=== PATIENT | female | born 1985 | race Caucasian/White ===

== ENCOUNTER 2021-10-21 05:55 | Inpatient (IN) | payer OTHER ==
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
[2021-10-21] MEDS ORDERED: LIDOCAINE 1% (10MG/ML) FOR IV START INTRADERMA PRN (06:22)
[2021-10-21] MEDS ORDERED: CITRIC ACID-SODIUM CITRATE 15 ML CUP PO ONE (06:22)
[2021-10-21] MEDS ORDERED: LACTATED RINGERS 1,000 ML IV ONE (06:22)
[2021-10-21 06:44] LABS: Glucose,Whole Blood 94 mg/dL (70-110)
[2021-10-21 06:51] LABS: Basophils % (A) 0 %; Eosinophils # (A) 0.1 k/uL (0-0.7); Eosinophils % (A) 1 %; HCT 36.7 % (34.0-46.0); HGB 11.8 gm/dL (11.4-16.0); Lymphocytes # (A) 2.4 k/uL (1.0-4.8); Lymphocytes % (A) 28 %; MCH 30.8 pg (25.0-35.0); MCV 96.2 fL (80.0-100.0); Mean Platelet Volume 7.8; Monocytes # (A) 0.7 k/uL (0-1.0); Monocytes % (A) 9 %; Neutrophils # (A) 5.1 k/uL (1.3-7.7); Neutrophils % (A) 60 %; Platelet Count 425 k/uL (150-450); RBC 3.82 m/uL (3.80-5.40); RDW 13.2 % (11.5-15.5); WBC 8.5 k/uL (3.8-10.6)
[2021-10-21] MEDS ORDERED: OXYTOCIN 30 UNITS/500 ML NS BAG IV ONE (07:59)
[2021-10-21] MEDS ORDERED: MORPHINE SULFATE (PF) 0.3 MG/0.3 ML SYR ONE (07:59)
[2021-10-21] MEDS ORDERED: NALBUPHINE 10 MG/ML (1 ML AMP) ONE (07:59)
[2021-10-21] MEDS ORDERED: KETOROLAC 15 MG/ML 1 ML VIAL ONE (07:59)
[2021-10-21] MEDS ORDERED: ONDANSETRON 4 MG/2 ML VIAL ONE (07:59)
[2021-10-21 08:45] LABS: Amphetamine Screen,Urine Not Detected (NotDetected); Barbiturate Screen,Urine Not Detected (NotDetected); Benzodiazepines Screen,Urine Not Detected (NotDetected); Cocaine Screen,Urine Not Detected (NotDetected); Methadone Screen, Urine Not Detected (NotDetected); Opiate Screen,Urine Not Detected (NotDetected); Oxycodone Screen, Urine Not Detected (NotDetected); Phencyclidine Screen,Urine Not Detected (NotDetected); Tricyclic Antidepressant,Urine Not Detected (NotDetected); Urn Cannabinoid Scrn Not Detected (NotDetected)
[2021-10-21] MEDS: OXYTOCIN 30 UNITS/500 ML NS 30 UNIT in SALINE 1 500ML.BAG IV SCH ×2 (08:45→09:48)
--- NOTE | 2021-10-21 08:56 | P.OP ---
Date of Procedure: 10/21/21 Preoperative Diagnosis: 1. Intrauterine at 39 and one sevenths weeks. 2. History of retained placenta and hemorrhage. 3. Limited care. 4. Family-planning. Postoperative Diagnosis: Same Procedure(s) Performed: Primary low transverse section with bilateral partial salpingectomy Anesthesia: spinal (Duramorph) Surgeon: Carline Woodruff Hop Grower #1: Daren Jackson Estimated Blood Loss (ml): 600 Pathology: none sent (Placenta, portions of right and left fallopian tubes) Condition: stable Disposition: floor Indications for Procedure: This is a 36-year-old female 5 para 4 at 39 and one sevenths weeks who presents for primary section secondary to history of hemorrhage and retained placenta with her last . She also has requested tubal ligation for family planning. She has had limited care this . I have discussed the risks, benefits, and alternative therapies for the above- mentioned procedure and for both sedation/anesthesia as well as necessary blood products administration, if indicated, as they pertain to this patient. The patient has indicated her understanding and acceptance of the risks and procedures discussed. Operative Findings: A viable male infant is noted in the vertex presentation with scores of 7 at 1 minute and 8 at 5 minutes and infant weight of 6 lbs. 4 oz. Normal uterus tubes and ovaries are noted. Description of Procedure: The patient is taken to the operating room where she is placed in the dorsal supine position with leftward tilt after spinal Duramorph anesthesia is given. She is prepped and draped in the normal sterile fashion. Skin was tested and found to be adequately anesthetized. A Pfannenstiel skin incision was made with a scalpel. A second knife was used to carry the incision down to the underlying layer of fascia. The fascia was nicked in the midline with a scalpel and then extended laterally bilaterally with Holland scissors. The anterior lip of the fascia was grasped with 2 Wil clamps and then dissected off the underlying rectus muscle in the midline with Holland scissors. The inferior aspect of the fascial incision was grasped with 2 Wil clamps and dissected off the underlying rectus muscle and the midline with Holland scissors. Next the peritoneum layer was tented up with 2 hemostats and then entered sharply with the scalpel. The incision is extended superiorly and inferiorly with Metzenbaum scissors. Next a DeLee retractor is placed. The vesicouterine peritoneum is entered sharply with Metzenbaum scissors and extended laterally bilaterally with Metzenbaum scissors and then the bladder flap is pushed inferiorly. The lower uterine segment is incised in transverse fashion with the scalpel and then bluntly entered with a hemostat. Clear fluid is noted. The incision was then extended laterally bilaterally with 2 fingers. Next the 's head is delivered through the incision. Nose and mouth are bulb suctioned. The remainder of the is easily delivered and placed on mother's abdomen. Cord is clamped and cut. is taken to warmer by nursing staff. Uterine fundus is gently massaged and placenta is delivered manually. Uterus is exteriorized and cleared of all clots and debris. Uterine incision is closed with 0 Vicryl suture in a running locked fashion. A second layer of 0 Vicryl suture is used in a running fashion for hemostasis. Once adequate hemostasis as assured, the vesicouterine peritoneum is reapproximated with 2-0 Vicryl suture in a running fashion. Attention is then turned to the tubes. The right fallopian tube is grasped in the midportion with a hemostat. Mesosalpinx is entered with Bovie cautery. 0 Vicryl suture is tied 2 times around both the proximal and distal portion of the tube. The knuckle of tube was then removed with Metzenbaum scissors. The ends of the tubes were then cauterized with Bovie cautery. The same procedure is carried out on the left fallopian tube. Posterior cul-de-sac is suctioned of all clots and debris. Uterus is returned to the abdomen. Incision is noted to be hemostatic. Both tubal segments are noted to be hemostatic. Peritoneal layer is closed with 0 Vicryl suture in a running fashion. Muscle layer is reapproximated with 0 Vicryl suture in interrupted fashion. Fascia layer is then closed with 0 PDS suture with 2 sutures meeting in the midline and the knots buried in either side and in the midline. The subcutaneous tissue was then closed with 2-0 Vicryl suture. Skin layer was then closed with dane. All sponge and needle counts are correct. The patient is taken to recovery room in stable condition.
[2021-10-21] MEDS ORDERED: diphenhydrAMINE 50 MG/ML 1 ML VIAL IVP PRN ×2 (08:57)
[2021-10-21] MEDS ORDERED: METOCLOPRAMIDE 5 MG/ML 2 ML VIAL IVP PRN (08:57)
[2021-10-21] MEDS ORDERED: diphenhydrAMINE 25 MG CAP PO PRN (08:57)
[2021-10-21] MEDS ORDERED: ZOLPIDEM 5 MG TAB PO PRN (08:57)
[2021-10-21] MEDS ORDERED: LANOLIN CREAM 5 GM TUBE TOPICAL PRN (08:57)
[2021-10-21] MEDS ORDERED: ONDANSETRON 4 MG/2 ML VIAL IVP PRN (08:57)
[2021-10-21] MEDS ORDERED: HYDROmorphone 1 MG/ML 1 ML SYRINGE IVP PRN (08:57)
[2021-10-21] MEDS ORDERED: diphenhydrAMINE 50 MG CAP PO PRN (08:57)
[2021-10-21] MEDS ORDERED: HYDROmorphone 0.5 MG/0.5 ML SYRINGE IVP PRN (08:57)
[2021-10-21] MEDS ORDERED: NALOXONE 0.4 MG/ML 1 ML VIAL IV PRN (08:57)
[2021-10-21] MEDS ORDERED: ESCITALOPRAM 5 MG TAB PO SCH (09:00)
[2021-10-21] MEDS ORDERED: METHYLERGONOVINE 0.2 MG/ML 1 ML AMP IM ONE (09:45)
[2021-10-21] MEDS: METOPROLOL TARTRATE 50 MG TAB PO SCH ×2 (10:37→21:16)
[2021-10-21] MEDS: ACETAMINOPHEN TAB 500 MG TAB PO SCH ×2 (11:38→18:20)
[2021-10-21] MEDS: PANTOPRAZOLE 40 MG TABLET PO SCH (11:39)
[2021-10-21] MEDS: LACTATED RINGERS 1,000 ML IV SCH ×2 (11:40→16:42)
[2021-10-21] MEDS ORDERED: miSOPROStoL 200 MCG TAB RECTAL STA (12:27)
[2021-10-21] MEDS: ACETAMINOPHEN IV (For NPO) 1,000 MG in EMPTY BAG 1 BAG IVPB SCH ×2 (12:28→18:40)
[2021-10-21 14:17] LABS: Basophils # (A) 0.1 k/uL (0-0.2); Basophils % (A) 0 %; Eosinophils # (A) 0.1 k/uL (0-0.7); Eosinophils % (A) 0 %; HCT 27.8 % (34.0-46.0); Hypochromasia Slight; Lymphocytes # (A) 3.7 k/uL (1.0-4.8); Lymphocytes % (A) 21 %; MCH 31.4 pg (25.0-35.0); MCHC 31.9 g/dL (31.0-37.0); MCV 98.4 fL (80.0-100.0); Mean Platelet Volume 7.9; Monocytes # (A) 1.1 k/uL (0-1.0); Monocytes % (A) 6 %; Neutrophils # (A) 12.7 k/uL (1.3-7.7); Neutrophils % (A) 71 %; Platelet Count 308 k/uL (150-450); RBC 2.82 m/uL (3.80-5.40); RDW 13.3 % (11.5-15.5); WBC 17.9 k/uL (3.8-10.6)
[2021-10-21 14:24] LABS: Prothrombin Time 10.6 sec (9.0-12.0)
[2021-10-21 14:42] LABS: HGB 8.9 gm/dL (11.4-16.0)
[2021-10-21 14:50] LABS: Partial Thromboplastin Time 21.7 sec (22.0-30.0)
[2021-10-21] MEDS: IBUPROFEN 600 MG TAB PO SCH ×2 (18:21→21:08)
--- NOTE | 2021-10-21 20:28 | P.PN ---
Progress Note - Text Progress Note Date: 10/21/21 This is a late entry. At approximate 9:30 AM I was called by the nurse who stated the patient has been passing clots every time she massaged the fundus. At that time I gave orders for Methergine 0.2 mg IM. Approximate 10:15 AM I was called to evaluate the patient. Upon evaluation, a large amount of blood clots were expressed from the vaginal vault and within the endometrial cavity. No placental tissue was palpated after removing the clots. Uterus did firm up and bleeding was minimal at this time. I was again called at approximately 12:30 PM and was told the bleeding was still continuing every time the fundus was massaged and she would get more clots out. At this time I ordered Cytotec 1000 g rectally. Approximately one hour later I was called to the room for hypotension and continued passing of blood clots. I expressed another large amount of blood clots. I had the nurses bring in the Bakri balloon and when I went to place the Bakri balloon within the endometrial cavity the cervical internal os felt closed and I was unable to pass through to the lower uterine segment. No further clots were noted. At this time the Bakri balloon was abandoned. I felt that the Cytotec was able to work after removing the large amount of clots. A stat CBC was ordered and later came back with a hemoglobin of 8.9. Her starting hemoglobin was 11.8. Since this time the patient's vital signs have improved and she has had very minimal bleeding.
[2021-10-21] MEDS: KETOROLAC 15 MG/ML 1 ML VIAL IVP SCH ×2 (21:08→22:46)
[2021-10-21] MEDS: ESCITALOPRAM 5 MG TAB PO SCH (21:16)
[2021-10-21] MEDS: SENNOSIDES-DOCUSATE SODIUM 1 EACH TAB PO SCH (21:17)
[2021-10-22] MEDS: ACETAMINOPHEN TAB 500 MG TAB PO SCH ×6 (00:39→23:28)
[2021-10-22] MEDS: IBUPROFEN 600 MG TAB PO SCH ×3 (03:13→19:38)
[2021-10-22] MEDS: LACTATED RINGERS 1,000 ML IV SCH ×2 (05:51→21:25)
[2021-10-22 06:30] LABS: Basophils # (A) 0.1 k/uL (0-0.2); Basophils % (A) 1 %; Eosinophils # (A) 0.1 k/uL (0-0.7); Eosinophils % (A) 1 %; HCT 24.2 % (34.0-46.0); Hypochromasia Slight; Lymphocytes # (A) 2.8 k/uL (1.0-4.8); Lymphocytes % (A) 21 %; MCH 32.2 pg (25.0-35.0); MCHC 33.1 g/dL (31.0-37.0); MCV 97.3 fL (80.0-100.0); Mean Platelet Volume 7.6; Monocytes # (A) 0.6 k/uL (0-1.0); Monocytes % (A) 5 %; Neutrophils # (A) 9.2 k/uL (1.3-7.7); Neutrophils % (A) 71 %; Platelet Count 342 k/uL (150-450); RBC 2.48 m/uL (3.80-5.40); RDW 13.5 % (11.5-15.5); WBC 12.9 k/uL (3.8-10.6)
[2021-10-22] MEDS: KETOROLAC 15 MG/ML 1 ML VIAL IVP SCH ×3 (07:14→21:25)
[2021-10-22] MEDS: SENNOSIDES-DOCUSATE SODIUM 1 EACH TAB PO SCH ×2 (08:05→21:18)
[2021-10-22] MEDS: METOPROLOL TARTRATE 50 MG TAB PO SCH ×2 (08:10→21:33)
[2021-10-22] MEDS: PANTOPRAZOLE 40 MG TABLET PO SCH (08:10)
--- NOTE | 2021-10-22 10:05 | P.PNOBGPC ---
Subjective - Subjective Principal diagnosis: Status post primary section with tubal ligation POD #1 Interval history: Patient is doing much better today. She has ambulated and is tolerating regular diet. Bleeding has been very minimal. She is urinating and passing flatus. She denies any bowel movement yet. She is sore on her abdomen. Patient reports: Reports appetite normal, Reports voiding normally, Reports pain well controlled, Reports ambulating normally Amlin: other (Baby in level I nursery) Objective - Vital Signs Latest vital signs: Vital Signs Temp Pulse Resp BP Pulse Ox 10/22/21 08:00 97.6 F 94 14 114/75 10/22/21 04:00 98.3 F 88 18 108/67 98 10/21/21 23:51 98.4 F 73 18 122/86 100 10/21/21 20:22 98.7 F 87 16 137/83 100 10/21/21 17:00 98.7 F 67 18 108/73 100 10/21/21 16:32 98.6 F 79 18 98/67 98 10/21/21 13:50 75 112/75 10/21/21 13:45 100 96/70 10/21/21 13:40 108 H 75/44 10/21/21 13:30 110 H 52/36 10/21/21 10:45 96.4 F L 70 14 112/70 100 10/21/21 10:14 70 14 115/74 100 Intake and Output 10/21/21 10/22/21 10/22/21 22:59 06:59 14:59 Intake Total 1540 240 Output Total 1600 600 Balance -60 -360 Intake: IV 1000 Oral 540 240 Output: Urine 1600 600 Uretheral (Wilkinson) 600 Other: Voiding Method Indwelling Catheter # Voids 1 2 - Exam Extremities: Present: normal. Absent: tenderness Abdomen: Present: normal appearance, soft (Positive bowel sounds 4). Absent: distention, tenderness Incision: Present: normal, dry, intact. Absent: erythematous Uterus: Present: normal, firm, tenderness (Mild) - Labs Labs: Abnormal Lab Results - Last 24 Hours (Table) 10/21/21 10/21/21 10/22/21 Range/Units 13:40 13:40 05:51 WBC 17.9 H 12.9 H (3.8-10.6) k/uL RBC 2.82 L 2.48 L (3.80-5.40) m/uL Hgb 8.9 L D 8.0 L (11.4-16.0) gm/dL Hct 27.8 L 24.2 L (34.0-46.0) % Neutrophils # 12.7 H 9.2 H (1.3-7.7) k/uL Monocytes # 1.1 H (0-1.0) k/uL APTT 21.7 L (22.0-30.0) sec Assessment and Plan Assessment: Status post primary low transverse section with bilateral partial salpingectomy postoperative day #1 hemorrhage with blood loss anemia (1) 39 weeks gestation of Current Visit: No Status: Acute Code(s): Z3A.39 - 39 WEEKS GESTATION OF SNOMED Code(s): 78177332 (2) Family planning Current Visit: No Status: Acute Code(s): Z30.09 - ENCOUNTER FOR OTH GENERAL CNSL AND ADVICE ON CONTRACEPTION SNOMED Code(s): 760917768 Plan: We'll continue to monitor. Hemoglobin is stable at this time. Advance diet as tolerated.
--- NOTE | 2021-10-22 10:47 | P.PN ---
Progress Note - Text 10/22/21 6:20 AM 36-year-old female status post with spinal Duramorph. Patient seen and evaluated for postop pain control, she has a VAS of 5, she is doing better than last night, she needed pain meds for breakthrough pain. No complains of nausea vomiting and she has mild pruritus. No other anesthesia related issues noted
[2021-10-22] MEDS: SIMETHICONE 80 MG CHEWABLE PO PRN (21:32)
[2021-10-22] MEDS: ESCITALOPRAM 5 MG TAB PO SCH (21:33)
[2021-10-23] MEDS: IBUPROFEN 600 MG TAB PO SCH ×4 (01:31→23:14)
[2021-10-23] MEDS: ACETAMINOPHEN TAB 500 MG TAB PO SCH ×3 (05:15→20:34)
[2021-10-23 06:37] LABS: Basophils # (A) 0.1 k/uL (0-0.2); Basophils % (A) 1 %; Eosinophils # (A) 0.2 k/uL (0-0.7); Eosinophils % (A) 2 %; HCT 20.4 % (34.0-46.0); Hypochromasia Slight; Lymphocytes # (A) 2.2 k/uL (1.0-4.8); Lymphocytes % (A) 25 %; MCH 31.6 pg (25.0-35.0); MCV 98.7 fL (80.0-100.0); Mean Platelet Volume 7.4; Monocytes # (A) 0.5 k/uL (0-1.0); Monocytes % (A) 5 %; Neutrophils # (A) 5.5 k/uL (1.3-7.7); Neutrophils % (A) 64 %; Platelet Count 359 k/uL (150-450); RBC 2.07 m/uL (3.80-5.40); RDW 13.8 % (11.5-15.5); WBC 8.6 k/uL (3.8-10.6)
[2021-10-23 06:39] LABS: HGB 6.5 gm/dL (11.4-16.0)
--- NOTE | 2021-10-23 08:12 | P.PNOBGPC ---
Subjective - Subjective Patient reports: Reports appetite normal, Reports voiding normally, Reports pain well controlled, Reports ambulating normally : doing well Objective - Vital Signs Latest vital signs: Vital Signs Temp Pulse Resp BP Pulse Ox 10/23/21 00:42 97.8 F 86 18 104/58 97 10/22/21 16:00 98.6 F 94 14 100/68 Intake and Output 10/22/21 10/23/21 10/23/21 22:59 06:59 14:59 Other: # Voids 2 2 - Exam Lungs: bilateral: normal Chest: Normal S1, Normal S2 Extremities: Present: normal Abdomen: Present: normal appearance, soft. Absent: distention, tenderness Incision: Present: normal, dry, intact Uterus: Present: normal, firm - Labs Labs: Abnormal Lab Results - Last 24 Hours (Table) 10/23/21 Range/Units 06:02 RBC 2.07 L (3.80-5.40) m/uL Hgb 6.5 L* D (11.4-16.0) gm/dL Hct 20.4 L (34.0-46.0) % Assessment and Plan Assessment: Postoperative day #2. Patient is resting without new complaints. Patient's hemoglobin today is 6.5. Vital signs are stable she's afebrile. She is fairly asymptomatic. I did discuss with the patient possible blood transfusion if she develops symptoms or she desires. She states that last she had a similar finding and they wanted her to get a blood transfusion but she declined at that time. Her uterus is firm and her incision is intact and dry. She's having normal lochia at this time. I think certainly she is stable and does not necessarily need a blood transfusion at this time. Therefore will institute iron therapy and repeat her CBC in the morning. If she continues to remain stable she can be discharged home tomorrow. (1) delivery delivered Current Visit: Yes Status: Acute Code(s): O82 - ENCOUNTER FOR DELIVERY WITHOUT INDICATION SNOMED Code(s): 478746795
[2021-10-23] MEDS: IRON PS CMPLX/VIT B12/FA 1 EACH CAP PO SCH (09:08)
[2021-10-23] MEDS: PANTOPRAZOLE 40 MG TABLET PO SCH (09:09)
[2021-10-23] MEDS: METOPROLOL TARTRATE 50 MG TAB PO SCH ×2 (09:09→21:50)
[2021-10-23] MEDS: SENNOSIDES-DOCUSATE SODIUM 1 EACH TAB PO SCH ×2 (09:09→21:50)
[2021-10-23] MEDS: SIMETHICONE 80 MG CHEWABLE PO PRN ×4 (09:14→20:34)
[2021-10-23] MEDS: ESCITALOPRAM 5 MG TAB PO SCH (21:50)
[2021-10-24] MEDS: ACETAMINOPHEN TAB 500 MG TAB PO SCH ×2 (00:08→02:30)
[2021-10-24] MEDS: IBUPROFEN 600 MG TAB PO SCH ×2 (02:32→05:28)
[2021-10-24 07:21] LABS: Basophils % (A) 1 %; Eosinophils # (A) 0.3 k/uL (0-0.7); Eosinophils % (A) 3 %; HCT 20.8 % (34.0-46.0); Hypochromasia Slight; Lymphocytes # (A) 2.4 k/uL (1.0-4.8); Lymphocytes % (A) 32 %; MCH 30.4 pg (25.0-35.0); MCHC 31.3 g/dL (31.0-37.0); MCV 97.1 fL (80.0-100.0); Mean Platelet Volume 7.3; Monocytes # (A) 0.4 k/uL (0-1.0); Monocytes % (A) 5 %; Neutrophils # (A) 4.3 k/uL (1.3-7.7); Neutrophils % (A) 57 %; Platelet Count 386 k/uL (150-450); RBC 2.15 m/uL (3.80-5.40); RDW 13.6 % (11.5-15.5); WBC 7.5 k/uL (3.8-10.6)
[2021-10-24 07:31] LABS: HGB 6.5 gm/dL (11.4-16.0)
--- NOTE | 2021-10-24 07:39 | P.PNOBGPC ---
Subjective - Subjective Patient reports: Reports appetite normal, Reports voiding normally, Reports pain well controlled, Reports ambulating normally : doing well, in NICU Objective - Vital Signs Latest vital signs: Vital Signs Temp Pulse Resp BP Pulse Ox 10/24/21 00:00 97.7 F 86 18 118/68 98 10/23/21 16:45 98.1 F 104 H 16 103/66 98 10/23/21 08:50 97.7 F 102 H 16 107/64 98 Intake and Output 10/23/21 10/24/21 10/24/21 22:59 06:59 14:59 Other: # Voids 1 2 - Exam Lungs: bilateral: normal Chest: Normal S1, Normal S2 Extremities: Present: normal Abdomen: Present: normal appearance, soft. Absent: distention, tenderness Incision: Present: normal, dry, intact Uterus: Present: normal, firm - Labs Labs: Abnormal Lab Results - Last 24 Hours (Table) 10/24/21 Range/Units 06:20 RBC 2.15 L (3.80-5.40) m/uL Hgb 6.5 L* (11.4-16.0) gm/dL Hct 20.8 L (34.0-46.0) % Assessment and Plan Assessment: Postoperative day #3. Patient is resting without new complaints. Hemoglobin is 6.5 again today. Patient has for the most part without new symptoms and again prefers not to have a blood transfusion. I feel at this point she is ambulating and urinating without difficulty and vital signs are stable. She is stable for discharge home follow up with Dr. Dubose in approximately 1 week for an incision and hemoglobin check. (1) delivery delivered Current Visit: Yes Status: Acute Code(s): O82 - ENCOUNTER FOR DELIVERY WITHOUT INDICATION SNOMED Code(s): 743596375
--- NOTE | 2021-10-24 07:45 | P.DS ---
Providers Date of admission: 10/21/21 05:55 Expected date of discharge: 10/24/21 Attending physician: Carline Woodruff Primary care physician: Stated None - Discharge Diagnosis(es) (1) delivery delivered Current Visit: Yes Status: Acute Hospital Course: Please see dictated H&P and delivery note per Dr. Woodruff on this patient's admission. In brief summary this is a 36-year-old 5 para 4 female 39 and one sevenths weeks gestation who is admitted to labor and delivery for elective repeat section and tubal ligation. Patient is admitted undergoes above-named surgery. Unfortunately, the patient has uterine atony and subsequent hemorrhage. This does respond to medical treatment. Hemoglobin settles out at 6.5. Patient and Dr. Woodruff and myself did discuss with her blood transfusion however she's fairly asymptomatic and did not want and therefore was felt to be stable and did not get one. After prolonged observation, patient's felt be stable for discharge home on oral iron therapy and close follow-up. Procedures: Primary low transverse section and bilateral partial salpingectomy Patient Condition at Discharge: Stable Plan - Discharge Summary New Discharge Prescriptions: New Ibuprofen [Motrin] 600 mg PO Q6H #60 tab oxyCODONE HCL [OxyIR] 5 mg PO Q4HR PRN #18 tab PRN Reason: Pain Scale 4 - 6 Iron Ps Cmplx/Vit B12/FA [Niferex-150 Forte] 1 each PO DAILY #30 cap Continue Omeprazole 20 mg PO BID PRN PRN Reason: Heartburn Metoprolol Tartrate [Lopressor] 50 mg PO BID Multivitamin [Multivitamins Adult Gummies] 1 each PO DAILY Escitalopram [Lexapro] 1 tab PO DAILY Discharge Medication List Metoprolol Tartrate [Lopressor] 50 mg PO BID 10/20/21 [History] Multivitamin [Multivitamins Adult Gummies] 1 each PO DAILY 10/20/21 [History] Omeprazole 20 mg PO BID PRN 10/20/21 [History] Escitalopram [Lexapro] 1 tab PO DAILY 10/21/21 [History] Ibuprofen [Motrin] 600 mg PO Q6H #60 tab 10/22/21 [Rx] oxyCODONE HCL [OxyIR] 5 mg PO Q4HR PRN #18 tab 10/22/21 [Rx] Iron Ps Cmplx/Vit B12/FA [Niferex-150 Forte] 1 each PO DAILY #30 cap 10/24/21 [Rx] Follow up Appointment(s)/Referral(s): Carline Woodruff DO [Doctor of Osteopathic Medicine] - 12/01/21 4:00 pm (Post Op 11-01-2021 at 02:30 p.m.) Patient Instructions/Handouts: (DC), Iron Deficiency Anemia (GEN), Iron Rich Diet (DC) Activity/Diet/Wound Care/Special Instructions: No heavy lifting or strenuous activity for 6 weeks. No intercourse or anything per vagina for 6 weeks. Please call if any fever, chills, excessive vaginal bleeding, and/or abdominal pain. Please take her iron as instructed. Discharge Disposition: HOME SELF-CARE
[2021-10-24] MEDS: IRON PS CMPLX/VIT B12/FA 1 EACH CAP PO SCH (08:11)
[2021-10-24] MEDS: PANTOPRAZOLE 40 MG TABLET PO SCH (08:11)
[2021-10-24] MEDS: METOPROLOL TARTRATE 50 MG TAB PO SCH (08:11)
[2021-10-24] MEDS: SENNOSIDES-DOCUSATE SODIUM 1 EACH TAB PO SCH (08:11)
[2021-10-24 08:46] VITALS: BP 114/72; PULSE 98; RESP 16; TEMP 97.9
--- NOTE | 2021-10-26 17:33 | CDI ---
Documentation Clarification Form Date: 10/26/2021 05:10:00 PM From: Mariposa Ramachandran Admit Date: 10/21/2021 05:55:00 AM Patient Name: Elysia Fernandes Visit Number: [id number] Discharge Date: 10/24/2021 10:20:00 AM ATTENTION: The Clinical Documentation Specialists (CDI) and [facility] Coding Staff appreciate your assistance in clarifying documentation. Please respond to the clarification below the line at the bottom and electronically sign. The CDI & [facility] Coding staff will review the response and follow-up if needed. Please note: Queries are made part of the Legal Health Record. If you have any questions, please contact the author of this message via ITS. Dr. Carline Woodruff hemorrhage with blood loss anemia is documented in progress note from 10/22/21. Additional specificity regarding the acuity of anemia is requested. History/Risk Factors: primary C/S with BPS, uterine atony and subsequent hemorrhage. Patient also had a history of retained placenta and hemorrhage in last . Clinical indicators: continued passing of clots with every fundal massage, large clots, hypotension Hemoglobin: 11.8 L, dropped to 6.5 L Hematocrit: 36.7 L, dropped to 20.4 L Treatment: methergine, fundal massage, cytotec, blood transfusion was considered; however, patient did not prefer to have a transfusion. Patient was asymptomatic, and felt to be stable. Please clarify the acuity of anemia: [X ] Acute blood loss anemia [ ] Acute on chronic blood loss anemia [ ] Chronic blood loss anemia [ ] Iron deficiency anemia [ ] Unable to determine [ ] Other, please specify MTDD
== END 2021-10-24 10:20 | disposition home or self-care (01) | DRG 784 ==
LOC: 4FBP 05:55
PROVIDERS: ADMIT Obstetrics & Gynecology; ATTEND Obstetrics & Gynecology
PROC: 10D00Z1 Extraction of Products of Conception, Low, Open Approach (ICD-10-PCS; principal; 2021-10-21 08:00)
PROC: 0UB70ZZ Excision of Bilateral Fallopian Tubes, Open Approach (ICD-10-PCS; principal; 2021-10-21 08:00)
DX: O72.1 Other immediate postpartum hemorrhage (principal); D62 Acute posthemorrhagic anemia; O99.02 Anemia complicating childbirth; O99.73 Diseases of the skin and subcutaneous tissue complicating the puerperium; L29.9 Pruritus, unspecified; O99.334 Smoking (tobacco) complicating childbirth; F17.210 Nicotine dependence, cigarettes, uncomplicated; O99.344 Other mental disorders complicating childbirth; F41.9 Anxiety disorder, unspecified; F32.A Depression, unspecified; Z3A.39 39 weeks gestation of pregnancy; Z37.0 Single live birth; Z87.59 Personal history of other complications of pregnancy, childbirth and the puerperium; Z91.19 Patient's noncompliance with other medical treatment and regimen; Z30.2 Encounter for sterilization; Z79.899 Other long term (current) drug therapy
CPT/HCPCS: 80306; 83036; 85025; 85610; 85730; 86850; 86900; 86901; 88302; 88307